=== PATIENT | female | born 1940 | race Caucasian/White ===

== ENCOUNTER → 2016-09-16 | Outpatient (CLI) | payer MEDICARE ==
--- NOTE | 2016-09-16 12:50 | KCIC ---
PROCEDURE Two-view left clavicle HISTORY Closed fracture of the left clavicle, injury 1 week ago. COMPARISON None FINDINGS Comminuted fracture at the midshaft of the left clavicle. The main medial fragment is elevated relative to the main lateral fragment. The acromioclavicular joint appears intact with mild degenerative osteophytes. IMPRESSION Displaced comminuted left clavicle fracture. Electronically signed by: Gucci Luna MD (Sep 16, 2016 12:49:45)
== END | disposition home or self-care (01) ==
LOC: KCIC 11:53
PROVIDERS: ATTEND Family Medicine
DX: S42.002A Fracture of unspecified part of left clavicle, initial encounter for closed fracture (principal); X58.XXXA Exposure to other specified factors, initial encounter; Y93.89 Activity, other specified; Y92.89 Other specified places as the place of occurrence of the external cause; Y99.8 Other external cause status
CPT/HCPCS: 73000